=== PATIENT | female | born 1960 | race American Indian/Alaskan Native ===

== ENCOUNTER 2018-11-27 14:35 | Emergency (ER) | payer MEDICAID ==
[2018-11-27 14:40] VITALS: RESP 18; TEMP 98.1; O2SAT 100; BMI 28.5
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
--- NOTE | 2018-11-27 17:45 | CT ---
Date of service: 11/27/2018 PROCEDURE: CT HEAD WITHOUT CONTRAST. HISTORY: Trauma COMPARISON: None available. TECHNIQUE: Axial computed tomography images were obtained through the head/brain without intravenous contrast. Radiation dose: Total exam DLP = 1058.86 mGy-cm. This CT exam was performed using one or more of the following dose reduction techniques: Automated exposure control, adjustment of the mA and/or kV according to patient size, and/or use of iterative reconstruction technique. FINDINGS: HEMORRHAGE: No acute parenchymal, subarachnoid or extra-axial hemorrhage. BRAIN: Minor chronic periventricular white matter ischemic changes seen extending peripherally into the deep white matter both cerebral hemispheres. Moderate central volume loss evidenced by disproportionate enlargement of the ventricles compared the sulci. VENTRICLES: No obstructive hydrocephalus. CALVARIUM: Calvarium intact PARANASAL SINUSES: Unremarkable as visualized. No significant inflammatory changes. MASTOID AIR CELLS: Unremarkable as visualized. No inflammatory changes. OTHER FINDINGS: None. IMPRESSION: No acute intracranial hemorrhage. Mild minor chronic periventricular white matter ischemic changes. Moderate central volume loss
[2018-11-27 19:37] VITALS: BP 110/70; PULSE 71
== END 2018-11-27 18:30 | disposition home or self-care (01) ==
LOC: H.ER 14:35
DX: S09.90XA Unspecified injury of head, initial encounter (principal); E11.9 Type 2 diabetes mellitus without complications; Z86.59 Personal history of other mental and behavioral disorders; I10 Essential (primary) hypertension; E78.5 Hyperlipidemia, unspecified
CPT/HCPCS: 70450; 96372; 99282; J2060